=== PATIENT | male | born 1955 | race Caucasian/White ===

== ENCOUNTER → 2020-02-19 08:07 | Outpatient (BNVA) | payer MEDICARE, SELFPAY | PROVIDERS: Family Provider Nurse Practitioner; PCP Nurse Practitioner; Visit Provider Nurse Practitioner | DX: E78.2 Mixed hyperlipidemia (principal); I10 Essential (primary) hypertension; Z68.1 Body mass index [BMI] 19.9 or less, adult | CPT/HCPCS: 80053; 80061; 85025 ==

== ENCOUNTER → 2020-05-19 08:11 | Outpatient (BNVA) | payer MEDICARE, SELFPAY | PROVIDERS: Family Provider Nurse Practitioner; PCP Nurse Practitioner; Visit Provider Nurse Practitioner | DX: E78.2 Mixed hyperlipidemia (principal); I10 Essential (primary) hypertension | CPT/HCPCS: 80053; 80061; 85025 ==

== ENCOUNTER → 2020-10-13 09:29 | Outpatient (BNVA) | payer MEDICARE, SELFPAY | PROVIDERS: Family Provider Nurse Practitioner; PCP Nurse Practitioner; Visit Provider Nurse Practitioner Family | DX: K04.7 Periapical abscess without sinus (principal); K11.1 Hypertrophy of salivary gland | CPT/HCPCS: 85025 ==

== ENCOUNTER 2020-10-21 13:13 | Outpatient (CLI) | payer MEDICARE, SELFPAY ==
--- NOTE | 2020-10-21 13:30 | US_ITS ---
WS: [id number] INDICATION: Ultrasound soft tissue neck TECHNIQUE: Ultrasound soft tissue neck in the area of concern FINDINGS: Ultrasound soft tissue neck area of concern. Area of interest in the right submandibular ar ea. No evidence of drainable abscess or fluid collection in this area. Diffuse heterogeneous subcutan eous echotexture in the area of swelling. Several well-circumscribed solid nodules are nonspecific bu t may represent suppurative or neoplastic lymph nodes. Nodules measure approximately 1-1.5 CM. Subman dibular gland nodules or neoplasm not excluded. Recommend further evaluation with neck CT. US/US soft tissue head neck [id number] IMPRESSION: Recommend further evaluation of the above-described process with co ntrast-enhanced neck CT. No drainable abscess or fluid collection.
== END 2020-10-21 13:14 | disposition home or self-care (01) ==
LOC: RAD 13:17
PROVIDERS: PCP Nurse Practitioner; Visit Provider Nurse Practitioner Family
DX: K04.7 Periapical abscess without sinus (principal)
CPT/HCPCS: 76536

== ENCOUNTER 2020-10-27 08:28 | Outpatient (CLI) | payer MEDICARE, SELFPAY ==
--- NOTE | 2020-10-27 08:36 | CT_ITS ---
WS: [id number] CT scan of the neck. Additional two-dimensional coronal and sagittal reconstruction was performed. Clinical Data: R59.0 - Localized enlarged lymph nodes Comparison: Subcutaneous ultrasound of the right side of the neck, 10/21/2020. DLP: 819.[address] scans at [facility] use at least one of these dose optimization techniques: automat ed exposure control; mA and/or kV adjustment per patient size (includes targeted exams where dose is matched to clinical indication); or iterative reconstruction. Findings: There is a soft tissue mass on the right side of the neck which measures 3.7 x 4.4 cm. There is an ar ea of low density centrally and anteriorly in this mass measuring 1.4 cm. This could represent an are a of necrosis and/or abscess. No diffuse lymphadenopathy is noted. The salivary glands are unremarkable. There is no prevertebral s oft tissue swelling. The larynx is symmetric. The thyroid gland shows normal enhancement. The floor o f the mouth and parapharyngeal spaces are normal. The oral cavity is unremarkable. The carotid arteries bifurcate normally. The cervical spine shows osteoarthritis. The lung apices michael w no abnormalities. The portions of the intracranial circulation which are seen demonstrate no abnorm alities. No erosion of the skull or skull base is seen. CT/CT neck w con* [id number] Impression: Right neck soft tissue mass measuring 3.7 x 4.4 cm with an 1.4 cm area of low d ensity which could represent necrosis and/or abscess.
[2020-10-27 09:00] LABS: Blood Urea Nitrogen 9 mg/dL (8-23)
[2020-10-27] MEDS: iohexol 300 mg/mL 100 mL Btl IV (09:08)
== END 2020-10-27 08:29 | disposition home or self-care (01) ==
PROVIDERS: PCP Nurse Practitioner; Visit Provider Nurse Practitioner Family
DX: R22.1 Localized swelling, mass and lump, neck (principal)
CPT/HCPCS: 70491; 82565; 84520; Q9967

== ENCOUNTER → 2020-11-06 13:59 | Outpatient (BNVA) | payer MEDICARE, SELFPAY | PROVIDERS: PCP Nurse Practitioner; Visit Provider Nurse Practitioner | DX: E78.2 Mixed hyperlipidemia (principal); E78.1 Pure hyperglyceridemia | CPT/HCPCS: 80053; 80061; 85025 ==